=== PATIENT | male | born 1960 | race Caucasian/White ===

== ENCOUNTER 2018-07-25 23:38 | Observation (INO) | payer OTHER, BC ==
[2018-07-26 00:11] LABS: CHLORIDE,CL 104 mEq/L (98-106); SODIUM,NA 142 mEq/L (136-145)
[2018-07-26] MEDS ORDERED: Sodium Chloride 0.9% 1,000 ML IV SCH (01:15)
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
[2018-07-26] MEDS ORDERED: Iopamidol 612 MG/ML 100 ML Bottle IVPUSH ONE (01:59)
[2018-07-26] MEDS ORDERED: Ondansetron 4 MG/2 ML SDV IV PRN (04:00)
[2018-07-26] MEDS ORDERED: Acetaminophen 325 MG Tab PO PRN (04:00)
[2018-07-26] MEDS: Sodium Chloride 0.9% 1,000 ML IV SCH ×2 (04:40→12:04)
[2018-07-26] MEDS: Morphine 2 MG/ML Syringe IVPUSH PRN ×4 (04:41→20:07)
[2018-07-26] MEDS: Ibuprofen 200 MG Tab PO PRN (08:01)
[2018-07-26] MEDS: Acetaminophen/HYDROcodone 325-5 MG Tab PO PRN ×2 (10:44→17:26)
[2018-07-27] MEDS: Morphine 2 MG/ML Syringe IVPUSH PRN (00:09)
[2018-07-27] MEDS: Acetaminophen/HYDROcodone 325-5 MG Tab PO PRN (07:38)
[2018-07-27] MEDS: Ibuprofen 200 MG Tab PO PRN (11:05)
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
== END 2018-07-27 13:30 | disposition home or self-care (01) ==
LOC: CC.ED 23:38 → CC.MS 07-26 03:42
PROVIDERS: ADMIT Physician Assistant Medical; ATTEND Family Medicine
DX: F10.129 Alcohol abuse with intoxication, unspecified (principal); Y90.0 Blood alcohol level of less than 20 mg/100 ml; S27.321A Contusion of lung, unilateral, initial encounter; S22.20XA Unspecified fracture of sternum, initial encounter for closed fracture; G47.30 Sleep apnea, unspecified; K21.9 Gastro-esophageal reflux disease without esophagitis; F17.210 Nicotine dependence, cigarettes, uncomplicated; V69.9XXA Occupant (driver) (passenger) of heavy transport vehicle injured in unspecified traffic accident, initial encounter
CPT/HCPCS: 36415; 70450; 70486; 71045; 71046; 71260; 72125; 72170; 74177; 80048; 81001; 82150; 85025; 85610; 85730; 96360; 96361; 99285; A9270; J2270; J7030; Q9967; 96365; 96366; 96374; 96376; G0378